=== PATIENT | female | born 1935 | race Caucasian/White ===

== ENCOUNTER 2024-05-28 13:12 | Inpatient (IN) ==
[2024-05-28] MEDS ORDERED: IOPAMIDOL 100 ML BOTTLE IV ONE (13:13)
[2024-05-28 14:25] LABS: Basophils # (Auto) 0.03 K/mcL (0.00-0.30); Basophils % (Auto) 0.6 % (0.0-2.0); Eosinophils # (Auto) 0.03 K/mcL (0.00-0.70); Eosinophils % (Auto) 0.6 % (0.0-7.0); Hematocrit 34.5 % (34.1-44.9); Hemoglobin 11.4 g/dL (11.2-15.7); Lymphocytes # (Auto) 0.98 K/mcL (1.50-4.80); Lymphocytes % (Auto) 19.2 % (15.5-49.0); Mean Cell Volume 101.5 fL (80.0-100.0); Mean Platelet Volume 9.9 fL (8.8-12.5); Monocytes # (Auto) 0.22 K/mcL (0.10-0.90); Monocytes % (Auto) 4.3 % (1.0-12.0); Neutrophils % (Auto) 74.7 % (38.0-78.0); Platelet Count 202 K/mcL (140-440); Red Cell Distribution Width 11.5 % (11.5-14.5); WBC 5.1 K/mcL (4.5-11.0)
[2024-05-28 14:46] LABS: Prothrombin Time 13.1 sec (11.9-14.5)
[2024-05-28 14:51] LABS: ALT/SGPT 16 U/L (<40); AST/SGOT 27 U/L (<32); Albumin 3.9 gm/dL (3.2-5.2); Albumin/Globulin Ratio 1.5 (1.0-2.3); Alkaline Phosphatase 85 U/L (39-117); Bilirubin,Total 0.3 mg/dL (0.1-1.0); Blood Urea Nitrogen 18 mg/dL (8-23); Carbon Dioxide 27 mmol/L (22-30); Chloride 92 mmol/L (96-108); Globulin 2.6 gm/dL (2.2-3.7); Glomerular Filtration Rate 66; Glucose 105 mg/dL (70-105); Potassium 5.3 mmol/L (3.3-5.1); Sodium 127 mmol/L (133-145)
[2024-05-28 15:04] LABS: Appearance,Urine Clear (Clear); Bacteria,Urine Few /hpf (0); Bilirubin,Urine Negative (Negative); Color,Urine Yellow; Glucose,Urine (UA) Negative (Negative); Ketones,Urine Negative (Negative); Leukocyte Esterase,Urine Large /uL (Negative); Nitrate,Urine Negative (Negative); PH,Urine 6.5 (5.0-9.0); Protein,Urine Negative (Negative); Urine Blood Negative ery/mcL (Negative); Urine RBC 0 /hpf (0-3); Urine Squamous Epithelial Cell 8 /hpf (0-4); Urine WBC 3 /hpf (0-4); Urobilinogen,Urine Normal
[2024-05-28] MEDS: 0.9 % SODIUM CHLORIDE 500 ML IV ONE (16:22)
[2024-05-28] MEDS: VANCOMYCIN 1,000 MG in 0.9 % SODIUM CHLORIDE 250 ML IV ONE (16:45)
[2024-05-28 17:28] LABS: C-Reactive Protein 5.15 mg/dL (0.03-0.80)
[2024-05-28] MEDS: diphenhydrAMINE 50 MG/ML VIAL IV ONE (17:43)
[2024-05-28] MEDS ORDERED: METOCLOPRAMIDE 10 MG/2 ML VIAL IV PRN (19:41)
[2024-05-28] MEDS ORDERED: POLYETHYLENE GLYCOL 3350 17 GM PACKET PO PRN (19:41)
[2024-05-28] MEDS ORDERED: VANCOMYCIN PER PHARMACY IV SCH (19:41)
[2024-05-28] MEDS ORDERED: METOPROLOL TARTRATE 5 MG/5 ML VIAL IV PRN (19:41)
[2024-05-28] MEDS ORDERED: MAGNESIUM SULFATE 2 GM/50 ML BAG IV PRN (19:41)
[2024-05-28] MEDS ORDERED: ONDANSETRON 4 MG/2 ML VIAL IV PRN (19:41)
[2024-05-28] MEDS ORDERED: HYDROcodone/APAP 5/325MG TABLET PO PRN (19:41)
[2024-05-28] MEDS ORDERED: SENNOSIDES 1 TABLET PO PRN (19:41)
[2024-05-28] MEDS ORDERED: ACETAMINOPHEN 325 MG TABLET PO PRN (19:41)
[2024-05-28] MEDS ORDERED: POTASSIUM CHLORIDE 20 MEQ TABLET PO PRN ×2 (19:41)
[2024-05-28] MEDS ORDERED: ENALAPRILAT 1.25 MG/ML VIAL IV PRN (19:41)
[2024-05-28] MEDS ORDERED: IPRATROPIUM/ALBUTEROL 3 ML AMPUL.NEB NEB PRN (19:41)
[2024-05-28] MEDS ORDERED: POTASSIUM CHLORIDE 40 MEQ in DEXTROSE 5% IN WATER 500 ML IV PRN (19:41)
[2024-05-28] MEDS: 0.9 % SODIUM CHLORIDE 1,000 ML IV ONE (20:00)
[2024-05-28] MEDS: cefTRIAXone 1 GM VIAL IV SCH (20:11)
[2024-05-28] MEDS ORDERED: ACETAMINOPHEN/DIPHENHYDRAMINE 1 TABLET PO PRN (20:54)
[2024-05-28] MEDS ORDERED: LABETALOL HCL 20 MG/4 ML VIAL IV PRN (20:56)
[2024-05-28] MEDS: 0.9 % SODIUM CHLORIDE 10 ML SYRINGE IV SCH (22:10)
[2024-05-28] MEDS: LISINOPRIL 20 MG TABLET PO SCH (22:11)
[2024-05-28] MEDS: DOCUSATE SODIUM 100 MG CAPSULE PO SCH (22:11)
[2024-05-29 05:35] LABS: Basophils # (Auto) 0.02 K/mcL (0.00-0.30); Basophils % (Auto) 0.6 % (0.0-2.0); Eosinophils # (Auto) 0.03 K/mcL (0.00-0.70); Hematocrit 31.2 % (34.1-44.9); Hemoglobin 10.4 g/dL (11.2-15.7); Lymphocytes # (Auto) 1.03 K/mcL (1.50-4.80); Lymphocytes % (Auto) 32.8 % (15.5-49.0); Mean Cell Volume 102.3 fL (80.0-100.0); Mean Corpuscular HGB Conc 33.3 g/dL (31.0-36.0); Mean Platelet Volume 9.9 fL (8.8-12.5); Monocytes # (Auto) 0.16 K/mcL (0.10-0.90); Monocytes % (Auto) 5.1 % (1.0-12.0); Neutrophils % (Auto) 59.9 % (38.0-78.0); Platelet Count 167 K/mcL (140-440); RBC 3.05 M/mcL (3.59-5.38); Red Cell Distribution Width 11.6 % (11.5-14.5); WBC 3.1 K/mcL (4.5-11.0)
[2024-05-29 05:53] LABS: ALT/SGPT 15 U/L (<40); AST/SGOT 24 U/L (<32); Albumin 3.7 gm/dL (3.2-5.2); Albumin/Globulin Ratio 1.8 (1.0-2.3); Alkaline Phosphatase 73 U/L (39-117); Bilirubin,Direct < 0.2 mg/dL (0-0.3); Bilirubin,Total 0.3 mg/dL (0.1-1.0); Blood Urea Nitrogen 12 mg/dL (8-23); Calcium 8.6 mg/dL (8.6-10.4); Carbon Dioxide 25 mmol/L (22-30); Chloride 103 mmol/L (96-108); Globulin 2.1 gm/dL (2.2-3.7); Glomerular Filtration Rate 82; Glucose 95 mg/dL (70-105); Lactate Dehydrogenase 144 U/L (135-225); Potassium 4.3 mmol/L (3.3-5.1); Sodium 138 mmol/L (133-145); Triglycerides 48 mg/dL (<150); Uric Acid 3.1 mg/dL (2.5-8.0)
[2024-05-29] MEDS: LEVOTHYROXINE 125 MCG TABLET PO SCH (07:10)
[2024-05-29] MEDS: OMEPRAZOLE 20 MG CAPSULE PO SCH (07:56)
[2024-05-29] MEDS: ATORVASTATIN 40 MG TABLET PO SCH (08:51)
[2024-05-29] MEDS: ENOXAPARIN 40 MG/0.4 ML SYRINGE SQ SCH (08:51)
[2024-05-29] MEDS ORDERED: OMEPRAZOLE 20 MG CAPSULE PO SCH (09:00)
[2024-05-29] MEDS ORDERED: VANCOMYCIN 1,000 MG in 0.9 % SODIUM CHLORIDE 250 ML IV SCH (10:00)
[2024-05-29] MEDS: VANCOMYCIN 750 MG in 0.9 % SODIUM CHLORIDE 250 ML IV SCH (10:44)
[2024-05-29] MEDS: GABAPENTIN 300 MG CAPSULE PO SCH ×2 (16:19→22:05)
[2024-05-29] MEDS ORDERED: ACETAMINOPHEN 500 MG TABLET PO PRN (21:00)
[2024-05-29] MEDS ORDERED: diphenhydrAMINE 25 MG CAPSULE PO PRN (21:00)
[2024-05-29] MEDS: CYCLOSPORINE OU SCH (21:30)
[2024-05-30 06:56] LABS: Basophils # (Auto) 0.02 K/mcL (0.00-0.30); Basophils % (Auto) 0.7 % (0.0-2.0); Eosinophils # (Auto) 0.07 K/mcL (0.00-0.70); Eosinophils % (Auto) 2.4 % (0.0-7.0); Hematocrit 28.9 % (34.1-44.9); Hemoglobin 9.5 g/dL (11.2-15.7); Lymphocytes # (Auto) 1.11 K/mcL (1.50-4.80); Lymphocytes % (Auto) 37.6 % (15.5-49.0); Mean Cell Volume 102.5 fL (80.0-100.0); Mean Corpuscular HGB Conc 32.9 g/dL (31.0-36.0); Mean Platelet Volume 9.5 fL (8.8-12.5); Monocytes # (Auto) 0.14 K/mcL (0.10-0.90); Monocytes % (Auto) 4.7 % (1.0-12.0); Neutrophils % (Auto) 53.2 % (38.0-78.0); Platelet Count 166 K/mcL (140-440); RBC 2.82 M/mcL (3.59-5.38); Red Cell Distribution Width 11.7 % (11.5-14.5)
[2024-05-30 16:01] VITALS: TEMP 97.7; O2SAT 99
== END 2024-05-30 14:23 | disposition home or self-care (01) | DRG 603 ==
LOC: ICU 13:12 → ED 13:12 → ICU 19:30 → MEDSUR 05-29 20:34
PROVIDERS: ADMIT Internal Medicine; ATTEND Internal Medicine